=== PATIENT | male | born 1955 | race African-American/Black ===

== ENCOUNTER 2024-12-01 21:29 | Inpatient (IN) | payer MEDICARE, OTHER ==
[~2024-12-01] VITALS: Ht 180.3 cm; Wt 68.5 kg
[2024-12-01 23:00] VITALS: BP 154/83; TEMP 97.5; O2SAT 98
[2024-12-01] MEDS ORDERED: ONDANSETRON HCL/PF 4 MG/2 ML VIAL IVP PRN (23:30)
[2024-12-01] MEDS ORDERED: Z GUARD REMEDY 4 OZ OINT TP PRN (23:30)
[2024-12-01] MEDS ORDERED: DEXTROSE 50%-WATER 50 ML DISP.SYRIN IV PRN (23:30)
[2024-12-01] MEDS ORDERED: MAG HYDROX/AL HYDROX/SIMETH 30 ML UDC PO PRN (23:30)
[2024-12-01] MEDS ORDERED: MAGNESIUM HYDROXIDE 30 ML UDC PO PRN (23:30)
[2024-12-01] MEDS ORDERED: LACTULOSE UDC 200 G in SODIUM CHLORIDE IRRIG SOLUTION 400 ML IR SCH (23:30)
[2024-12-01] MEDS ORDERED: ACETAMINOPHEN 325 MG TABLET PO PRN (23:30)
[2024-12-02] VITALS: BP 160/82; TEMP 97.5; O2SAT 99
[2024-12-02 04:00] VITALS: BP 153/84; TEMP 98.4; O2SAT 98
[2024-12-02] MEDS: BLOOD SUGAR DIAGNOSTIC 1 EACH STRIP IN SCH (06:38)
[2024-12-02] MEDS: IV NS 0.9% 1,000 ML IV SCH (06:39)
[2024-12-02] MEDS: INSULIN REGULAR, HUMAN 100 UNIT/ML 3 ML VIAL SQ PRN (06:44)
[2024-12-02 08:00] VITALS: BP_SYST 135; BP_SYST 160; BP_SYST 163; BP_DIAS 82; BP_DIAS 84; BP_DIAS 94; TEMP 98; O2SAT 96
[2024-12-02 08:07] LABS: HEMATOCRIT 44 % (39-51); HEMOGLOBIN 14.1 g/dL (13.5-17.5); LYMPHOCYTES % (AUTO) 21.9 % (20.0-44.0); MEAN CORPUSCULAR HEMOGLOBIN 28 PG (26.0-33.0); MEAN CORPUSCULAR HGB CONC 32 g/dl (31.0-36.0); MEAN CORPUSCULAR VOLUME 87 fL (80-96); MONOCYTES % (AUTO) 9.7 % (2.0-12.0); NEUTROPHILS % (AUTO) 58.3 % (43.0-81.0); PLATELET COUNT (AUTO) 319 K/uL (150-450); RED BLOOD CELL COUNT(AUTO) 5.06 MIL/uL (4.5-6.0); WHITE BLOOD COUNT (AUTO) 8.4 K/uL (4.3-11.0)
[2024-12-02 08:08] LABS: BASOPHILS % (AUTO) 0.5 % (0.0-2.0); EOSINOPHILS # (AUTO) 0.8 K/uL (0.0-0.7); EOSINOPHILS % (AUTO) 9.6 % (0.0-6.0); LYMPHOCYTES # (AUTO) 1.8 K/uL (0.8-4.8); MONOCYTES # (AUTO) 0.8 K/uL (0.1-1.30); NEUTROPHILS # (AUTO) 4.9 K/uL (1.8-8.9)
[2024-12-02 08:10] LABS: BILIRUBIN,TOTAL 0.3 mg/dL (0.2-1.0); CALCIUM, SERUM 9.2 mg/dL (8.5-10.1); CREATININE 0.9 mg/dL (0.6-1.3); MAGNESIUM 1.9 mg/dL (1.8-2.4); PHOSPHORUS 2.9 mg/dL (2.5-4.9); POTASSIUM 3.8 mmol/L (3.5-5.1); TOTAL PROTEIN, SERUM 7.5 g/dL (6.4-8.2)
[2024-12-02 08:20] LABS: THYROID STIMULATING HORMONE 1.18 uIU/mL (0.358-3.74)
[2024-12-02] MEDS: LACTULOSE UDC 200 G in SODIUM CHLORIDE IRRIG SOLUTION 400 ML IR SCH (08:30)
[2024-12-02] MEDS: PANTOPRAZOLE 40 MG VIAL IV SCH (10:15)
[2024-12-02 14:50] LABS: THYROID STIMULATING HORMONE 1.1 uIU/mL (0.358-3.74)
[2024-12-02 16:00] VITALS: BP_SYST 160; BP_SYST 163; BP_DIAS 82; BP_DIAS 84; TEMP 98.2; O2SAT 95
[2024-12-02] MEDS ORDERED: hydrALAZINE HCL IV 20 MG VIAL IV PRN (18:30)
[2024-12-02 20:00] VITALS: BP 153/94; TEMP 98; O2SAT 99
[2024-12-02] MEDS: ENOXAPARIN SODIUM 40 MG/0.4 ML DISP.SYRIN SQ SCH (22:38)
[2024-12-03 04:00] VITALS: BP 140/68; TEMP 98; O2SAT 100
[2024-12-03 06:56] LABS: CALCIUM, SERUM 8.8 mg/dL (8.5-10.1); CREATININE 0.8 mg/dL (0.6-1.3); MAGNESIUM 1.5 mg/dL (1.8-2.4); POTASSIUM 3.7 mmol/L (3.5-5.1)
[2024-12-03 07:11] LABS: BASOPHILS % (AUTO) 0.6 % (0.0-2.0); EOSINOPHILS # (AUTO) 0.6 K/uL (0.0-0.7); HEMATOCRIT 48 % (39-51); HEMOGLOBIN 15.4 g/dL (13.5-17.5); LYMPHOCYTES % (AUTO) 25.3 % (20.0-44.0); MEAN CORPUSCULAR HEMOGLOBIN 28 PG (26.0-33.0); MEAN CORPUSCULAR HGB CONC 32 g/dl (31.0-36.0); MEAN CORPUSCULAR VOLUME 87 fL (80-96); MONOCYTES # (AUTO) 0.6 K/uL (0.1-1.30); MONOCYTES % (AUTO) 7.8 % (2.0-12.0); NEUTROPHILS # (AUTO) 4.8 K/uL (1.8-8.9); NEUTROPHILS % (AUTO) 59.3 % (43.0-81.0); PLATELET COUNT (AUTO) 328 K/uL (150-450); RED BLOOD CELL COUNT(AUTO) 5.44 MIL/uL (4.5-6.0); RED CELL DISTRIBUTION WIDTH 14.4 % (11.5-15.0); WHITE BLOOD COUNT (AUTO) 8.1 K/uL (4.3-11.0)
[2024-12-03 08:00] VITALS: BP 144/91; TEMP 98.2; O2SAT 97
[2024-12-03 12:00] VITALS: BP 144/84; TEMP 97.5; O2SAT 100
[2024-12-03] MEDS: MAGNESIUM OXIDE 400 MG TABLET PO ONE (12:00)
[2024-12-04 08:07] LABS: FOLIC ACID 8.2 ng/mL (>3.0)
[2024-12-04] MEDS ORDERED: PANTOPRAZOLE 40 MG TABLET.DR PO SCH (09:00)
== END 2024-12-03 16:00 | disposition home or self-care (01) | DRG 441 ==
LOC: TELE 22:29
PROVIDERS: ATTEND Nurse Practitioner Family
DX: K76.82 Hepatic encephalopathy (principal); G92.9 Unspecified toxic encephalopathy; E72.20 Disorder of urea cycle metabolism, unspecified; E11.9 Type 2 diabetes mellitus without complications; Z79.4 Long term (current) use of insulin; E78.5 Hyperlipidemia, unspecified; I10 Essential (primary) hypertension; F14.10 Cocaine abuse, uncomplicated; G93.89 Other specified disorders of brain; Z86.61 Personal history of infections of the central nervous system; Z98.890 Other specified postprocedural states; Z91.148 Patient's other noncompliance with medication regimen for other reason
CPT/HCPCS: 36415; 70450-TC; 80048-TC; 80053-TC; 82140-TC; 82607-TC; 82962-TC; 83735-TC; 83921; 84100-TC; 84425; 84443-TC; 85025-TC; 87081-TC; 92526; 92611-TC; A4217; G0378; J1650; J1815; J2470; J7030